=== PATIENT | male | born 1950 | race Two or more races ===

== ENCOUNTER 2025-07-23 00:30 | Emergency (ER) | payer OTHER ==
[~2025-07-23] VITALS: Ht 167.6 cm; Wt 71.8 kg
[2025-07-23] MEDS: KETOROLAC TROMETH 30 MG/ML 1ML VIAL IV ONE (01:00)
--- NOTE | 2025-07-23 01:05 | ED.PDOC ---
History of Present Illness HPI Comments 75-year-old male who came to ER via EMS for neck pain. Patient states for the past 4 days he has been experiencing neck pain associated with chills. Denies any headaches or dizziness. Denies any recent trauma. Chief Complaint: Neck Pain Time Seen by MD: 01:05 Reviewed Notes: Nurses Notes Allergies: Coded Allergies: NO KNOWN ALLERGIES (Unverified , 07/23/25) Home Meds Active Scripts Acetaminophen (Tylenol Extra Strength) 500 Mg Tab, 500 MG PO Q4HP PRN, #30 TAB Prov:MENDY RAGLAND MD 07/23/25 Gabapentin (Once-Daily) (Gabapentin) 300 Mg Tab, 300 MG PO Q6HP PRN, #60 TAB Prov:MENDY RAGLAND MD 07/23/25 Information Source: Patient, Emergency Med Personnel Mode of Arrival: EMS Past Medical History PAST MEDICAL HISTORY: PUD Past Medical History (Other): Bipolar disorder Surgical History: Denies all surgeries Family History Family History: Reviewed,noncontributory to illness Social History Smoker: Non-Smoker Alcohol: Denies ETOH Use Drugs: Denies Drug Use Lives In: Home Constitutional: reports: chills; denies: diaphoresis, fatigue, fever, malaise, sweats, weakness, others EENTM: denies: blurred vision, double vision, ear bleeding, ear discharge, ear drainage, ear pain, ear ringing, eye pain, eye redness, hearing loss, mouth pain, mouth swelling, nasal discharge, nose bleeding, nose congestion, nose pain, photophobia, tearing, throat pain, throat swelling, voice changes, others Respiratory: denies: cough, hemoptysis, orthopnea, SOB at rest, shortness of breath, SOB with excertion, stridor, wheezing, others Cardiovascular: denies: chest pain, dizzy spells, diaphoresis, Dyspnea on exertion, edema, irregular heart beat, left arm pain, lightheadedness, palpitations, PND, syncope, others Gastrointestinal: denies: abdomen distended, abdominal pain, blood streaked bowels, constipated, diarrhea, dysphagia, difficulty swallowing, hematemesis, melena, nausea, poor appetite, poor fluid intake, rectal bleeding, rectal pain, vomiting, others Genitourinary: denies: burning, dysuria, flank pain, frequency, hematuria, incontinence, penile discharge, penile sore, pain, testicle pain, testicle swelling, urgency, others Neurological: denies: dizziness, fainting, headache, left sided numbness, left sided weakness, numbness, paresthesia, pre-existing deficit, right sided numbne ss, right sided weakness, seizure, speech problems, tingling, tremors, weakness, others Musculoskeletal: reports: neck pain; denies: back pain, gout, joint pain, joint swelling, muscle pain, muscle stiffness, others Integumetry: denies: bruises, change in color, change in hair/nails, dryness, laceration, lesions, lumps, rash, wounds, others Allergic/Immunocompromised: denies: Difficulty Healing, Frequent Infections, Hives, Itching, others Hematologic/Lymphatic: denies: anemia, blood clots, easy bleeding, easy bruising, swollen glands, others Endocrine: denies: excessive hunger, excessive sweating, excessive thirst, excessive urination, flushing, intolerance to cold, intolerance to heat, unexplained weight gain, unexplained weight loss, others Psychiatric: denies: anxiety, bipolar disorder, depression, hopeless, panic disorder, schizophrenia, sleepless, suicidal, others Physical Exam General Appearance: No Apparent Distress, Normal HEENT: Normal ENT Inspection, Pharynx Normal, TMs Normal Neck: Full Range of Motion, Non-Tender, Normal, Normal Inspection Respiratory: Chest Non-Tender, Lungs Clear, No Accessory Muscle Use, No Respiratory Distress, Normal Breath Sounds Cardiovascular: No Edema, No JVD, No Murmur, No Gallop, Normal Peripheral Puls es, Regular Rate/Rhythm Breast Exam: Deferred Gastrointestinal: No Organomegaly, Non Tender, No Pulsatile Mass, Normal Bowel Sounds, Soft Genitalia: Deferred Pelvic: Deferred Rectal: Deferred Extremities: No calf tenderness, Normal capillary refill, Normal inspection, Normal range of motion, Non-tender, No pedal edema Musculoskeletal : Apperance: Normal Neurologic: Alert, locksmith II-XII nml as Tested, No Motor Deficits, Normal Affect, Normal Mood, No Sensory Deficits Cerebellar Function: Normal Reflexes: Normal Skin: Dry, Normal Color, Warm Lymphatic: No Adenopathy Was a procedure done? Was a procedure done?: No Differential Dx Considerations may include: Musculoskeletal pain, neck pain, meningitis X-Ray, Labs, Meds, VS Vital Signs Date Time Temp Pulse Resp B/P (MAP) Pulse Ox O2 Delivery O2 Flow Rate FiO2 07/23/25 02:45 98.8 80 16 154/92 (112) 93 98.8 07/23/25 02:00 98.8 80 16 134/48 (76) 93 98.8 07/23/25 01:14 98.8 81 21 139/48 (78) 93 98.8 07/23/25 01:14 21 93 Room Air* 0 21 07/23/25 00:30 98.8 85 16 177/100 99 98.8 Lab Test 07/23/25 01:07 Range/Units White Blood Count 14.3 H 4.4-10.8 10^3/uL Red Blood Count 4.99 4.5-5.90 10^6/uL Hemoglobin 14.9 13.5-17.5 g/dL Hematocrit 44.0 41.0-53.0 % Mean Corpuscular Volume 88.1 80.0-100.0 fL Mean Corpuscular Hemoglobin 29.8 28.0-32.0 pg Mean Corpuscular Hemoglobin Concent 33.8 32.0-36.0 g/dL Red Cell Distribution Width 12.8 11.8-14.3 % Platelet Count 223 140-450 10^3/uL Mean Platelet Volume 7.3 6.9-10.8 fL Neutrophils (%) (Auto) 79.1 37.0-80.0 % Lymphocytes (%) (Auto) 11.5 10.0-50.0 % Monocytes (%) (Auto) 8.7 0.0-12.0 % Eosinophils (%) (Auto) 0.3 0.0-7.0 % Basophils (%) (Auto) 0.4 0.0-2.0 % Neutrophils # (Auto) 11.3 H 1.6-8.6 10 ^3/uL Lymphocytes # (Auto) 1.6 0.4-5.4 10 ^3/uL Monocytes # (Auto) 1.2 0-1.3 10 ^3/uL Eosinophils # (Auto) 0 0-0.8 10 ^3/uL Basophils # (Auto) 0.1 0-0.2 10 ^3/uL Nucleated Red Blood Cells 0.0 % Prothrombin Time 11.3 9.3-11.8 sec Prothrombin Time INR 1.07 0.9-1.15 Activated Partial Thromboplast Time 27.3 24.5-34.5 SEC Sodium Level 136 136-145 mmol/L Potassium Level 3.4 L 3.5-5.1 mmol/L Chloride Level 103 98-107 mmol/L Carbon Dioxide Level 23 20-31 mmol/L Anion Gap 10 5-15 Blood Urea Nitrogen 22 9-23 mg/dL Creatinine 1.00 0.700-1.30 mg/dL Glomerular Filtration Rate Calc 78 >90 mL/min BUN/Creatinine Ratio 22.0 H 10.0-20.0 Serum Glucose 152 H 74-106 mg/dL Calcium Level 9.3 8.7-10.4 mg/dL Current Medications Medications (Trade) Dose Ordered Sig/Juventino Route Start Time Stop Time Status Last Admin Ketorolac Tromethamine (Toradol Injection) 15 mg ONCE ONCE IV 07/23/25 01:00 07/23/25 01:21 DC 07/23/25 01:00 Time of 1ST Reevaluation: 01:02 Reevaluation 1ST: Unchanged Patient Education/Counseling: Diagnosis, Treatment Family Education/Counseling: No Family Present SEPSIS Sepsis Screen Date sepsis recognized/suspect: Jul 23, 2025 Time Sepsis recognized/suspect: 004 Recent Procedure: No On Antibiotic Therapy: No Respiratory Rate >20: No Heart Rate >90: No Temp<36 C (96.8 F) or >38.3 C: No SBP <90 or MAP <65 mmHG: No New Acute Mental Status Change: No Is the patient on CPAP, BIPAP,: No Physician Orders Cervical Without Contrast (07/23/25 00:56) Vital Signs Date Time Temp Pulse Resp B/P (MAP) Pulse Ox O2 Delivery O2 Flow Rate FiO2 07/23/25 02:45 98.8 80 16 154/92 (112) 93 98.8 07/23/25 02:00 98.8 80 16 134/48 (76) 93 98.8 07/23/25 01:14 98.8 81 21 139/48 (78) 93 98.8 07/23/25 01:14 21 93 Room Air* 0 21 07/23/25 00:30 98.8 85 16 177/100 99 98.8 Laboratory Tests Test 07/23/25 01:07 White Blood Count 14.3 10^3/uL (4.4-10.8) H Medications Medications Dose Ordered Sig/Juventino Route Start Time Stop Time Status Last Admin Dose Admin Ketorolac Tromethamine 15 mg ONCE ONCE IV 07/23/25 01:00 07/23/25 01:21 DC 07/23/25 01:00 Departure 1 Departure Time of Disposition: 03:00 Impression: Primary Impression: Neck pain on right side Disposition: 01 HOME / SELF CARE / HOMELESS Condition: Stable e-Prescriptions Acetaminophen (Tylenol Extra Strength) 500 Mg Tab 500 MG PO Q4HP PRN, #30 TAB Prov: MENDY RAGLAND MD 07/23/25 Gabapentin (Once-Daily) (Gabapentin) 300 Mg Tab 300 MG PO Q6HP PRN, #60 TAB Prov: MENDY RAGLAND MD 07/23/25 Discharged With: Self Critical Care Note Critical Care Time?: No Stability Stability form required: No Heart Score Heart Score: Heart Score Response (Comments) Value History N/A 0 EKG N/A 0 Age N/A 0 Risk Factors N/A 0 Troponin N/A 0 Total 0 I personally scribed for MENDY RAGLAND MD ([email or web address]) on 07/23/25 at 01:05. Electronically submitted by John North ([email or web address]). MENDY RAGLAND MD Jul 23, 2025 01:05
[2025-07-23 01:14] VITALS: RESP 21; O2SAT 93
[2025-07-23 01:27] LABS: Hematocrit 44.0 % (41.0-53.0); Hemoglobin 14.9 g/dL (13.5-17.5); Mean Corpuscular Hemoglobin 29.8 pg (28.0-32.0); Mean Corpuscular Volume 88.1 fL (80.0-100.0); Nucleated Red Blood Cells % 0.0 %
[2025-07-23 01:28] LABS: Chloride 103 mmol/L (98-107); Sodium 136 mmol/L (136-145)
[2025-07-23 01:29] LABS: Anion Gap 10 (5-15); Carbon Dioxide 23 mmol/L (20-31)
[2025-07-23 01:30] LABS: Calcium 9.3 mg/dL (8.7-10.4)
[2025-07-23 01:31] LABS: Potassium 3.4 mmol/L (3.5-5.1)
[2025-07-23 01:35] LABS: BUN/Creatinine Ratio 22.0 (10.0-20.0); Blood Urea Nitrogen 22 mg/dL (9-23)
[2025-07-23 01:40] LABS: Glucose 152 mg/dL (74-106)
[2025-07-23 01:42] LABS: INR 1.07 (0.9-1.15); Partial Thromboplastin Time 27.3 SEC (24.5-34.5); Prothrombin Time 11.3 sec (9.3-11.8)
--- NOTE | 2025-07-23 02:07 | DVH ---
EXAM: CT CERVICAL WITHOUT CONTRAST HISTORY: pain COMPARISON: None CTDIvol 25.81 mGy, DLP 695.79 mGy*cm. TECHNIQUE: Multiple axial CT images of the spine were obtained using bone algorithm. Axial and coronal reformatting was done. Bone and soft tissue windows were reviewed. FINDINGS: No evidence of vertebral fracture or compression deformity. Diffuse osteopenia. No traumatic listhesis. Normal alignment of the craniocervical junction with degenerative changes. Moderate multilevel spondylosis. No acute finding of the neck soft tissues or upper chest. IMPRESSION: 1. No acute finding of the cervical spine.
[2025-07-23] MEDS ORDERED: ACET-1304 PO (02:35)
[2025-07-23] MEDS ORDERED: GABA300T4 PO (02:35)
[2025-07-23 02:45] VITALS: BP 154/92; PULSE 80; RESP 16; TEMP 98.8; O2SAT 93
[2025-07-25] MEDS ORDERED: CELE200C PO (00:10)
[2025-07-25] MEDS ORDERED: BUPR150T18 PO (00:13)
[2025-07-25] MEDS ORDERED: PANT1INJ3 PO (00:13)
[2025-07-25] MEDS ORDERED: SUCR1TAB31 OR (00:13)
[2025-07-25] MEDS ORDERED: FLUO40CA PO (00:14)
== END 2025-07-23 03:50 | disposition home or self-care (01) ==
LOC: EDBD 00:30 → ER 00:30
DX: M54.2 Cervicalgia (principal); R06.02 Shortness of breath; F31.9 Bipolar disorder, unspecified
CPT/HCPCS: 36415; 72125; 80048; 85025; 85610; 85730; 96374; 99284; J1885